=== PATIENT | male | born 1990 | race American Indian/Alaskan Native ===

== ENCOUNTER 2020-09-28 07:12 | Emergency (ER) | payer SELFPAY ==
[2020-09-28] MEDS ORDERED: levETIRAcetam 1000 MG/NS 0.75% 1,000 MG/100 ML BAG IV ONE ×2 (07:44→07:45)
--- NOTE | 2020-09-28 07:48 | Emergency Department Report ---
ED General Adult HPI - General Chief complaint: Seizure Stated complaint: SEIZURE PUI?: No Time Seen by Provider: 09/28/20 07:34 Source: patient, EMS ( EMS documentation not available at time of chart dictation ), RN notes reviewed Mode of arrival: Stretcher Limitations: No Limitations - History of Present Illness Initial comments: The patient was evaluated in the emergency department for symptoms described in the history of present illness. He/she was evaluated in the context of the global COVID-19 pandemic, which necessitated consideration that the patient might be at risk for infection with the virus that causes COVID-19. Institutional protocols and algorithms that pertain to the evaluation of patients at risk for COVID-19 are in a state of rapid change based on information released by regulatory bodies including the CDC and federal and state organizations. These policies and algorithms were followed during the patient's care in the emergency department. Please note that these policies, procedures and recommendations changed on a rapid basis. The patient is a 30-year-old gentleman. He is not known to myself previously. He has a history of seizure. He takes Keppra, 500 mg twice daily. He has moved to this area about a year ago, from [facility], where he was seeing a neurologist, Dr. North. He reports he was diagnosed with seizures approximately 2 years ago, and maintained on Keppra. His last seizure/convulsion was in 2019. The patient has been maintained on Keppra, and has had gradually de-escalating doses, over the past 2 years, and he currently takes 500 mg twice daily, and reports compliance with his Keppra. He presents to the ER via EMS, because of having had convulsion or seizures. He reports his fiance contacted 911. The patient denies headache, neck pain, chest pain, abd ominal pain, shortness of breath, fever, chills, sore throat, loss of vision, loss of taste, loss of smell has mild right-sided throbbing shoulder discomfort, he does not use recreational drugs, and occasionally smokes hookah. He has no additional complaints at this time, he does not want any pain medicine, and he states that he feels like in his usual state of health. 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 Specifically denies headache, neck pain, fever, chills, loss of taste and smell -: Sudden Consistency: now resolved Improves with: none Worsens with: none Associated Symptoms: denies other symptoms - Related Data Previous Rx's Medication Instructions Recorded Last Taken Type levETIRAcetam [Keppra TAB] 1,000 mg PO BID #60 tab 09/28/20 Unknown Rx Allergies Allergy/AdvReac Type Severity Reaction Status Date / Time No Known Allergies Allergy Unverified 09/28/20 08:30 ED Review of Systems ROS: Stated complaint: SEIZURE Other details as noted in HPI Musculoskeletal: arthralgia, other (Right shoulder pain) ED Past Medical Hx - Past Medical History Previous Medical History?: Yes Additional medical history: seizure - Surgical History Past Surgical History?: No - Social History Smoking Status: Light Tobacco Smoker Substance Use Type: None - Medications Home Medications: Home Medications Medication Instructions Recorded Confirmed Last Taken Type levETIRAcetam [Keppra TAB] 1,000 mg PO BID #60 tab 09/28/20 Unknown Rx ED Physical Exam - General Limitations: No Limitations General appearance: alert, in no apparent distress - Head Head exam: Present: atraumatic, normocephalic - Eye Eye exam: Present: normal appearance, PERRL, EOMI, other (Visual acuity intact to finger counting, color perception, reading at a close distance). Absent: nystagmus - ENT ENT exam: Present: normal exam, normal orophraynx, mucous membranes moist, normal external ear exam - Neck Neck exam: Present: normal inspection, full ROM. Absent: tenderness, meningismus - Respiratory Respiratory exam: Present: normal lung sounds bilaterally. Absent: respiratory distress, wheezes, rales, stridor, decreased breath sounds - Cardiovascular Cardiovascular Exam: Present: regular rate, normal rhythm, normal heart sounds. Absent: bradycardia, tachycardia, irregular rhythm, systolic murmur, diastolic murmur, rubs, gallop - GI/Abdominal GI/Abdominal exam: Present: soft, normal bowel sounds. Absent: distended, tenderness, guarding, rebound, rigid, pulsatile mass - Rectal Rectal exam: Present: deferred - Extremities Exam Extremities exam: Present: normal inspection, full ROM, other (2+ pulses noted in the bilateral upper and lower extremities. There is no palpable cord. negative Homans sign. Muscular compartments are soft. The pelvis is stable.). Absent: pedal edema, calf tenderness - Back Exam Back exam: Present: normal inspection, full ROM. Absent: tenderness, CVA tenderness (R), CVA tenderness (L), paraspinal tenderness, vertebral tenderness - Neurological Exam Neurological exam: Present: alert, oriented X3, other (No facial droop. Tongue midline. Extraocular movements intact bilaterally. Facial sensation intact to light touch in V1, V2, V3 distribution bilaterally. 5 and a 5 strength in 4 extremities. Sensation intact to light touch in 4 extremities.). Absent: motor sensory deficit - Psychiatric Psychiatric exam: Present: normal affect, normal mood - Skin Skin exam: Present: warm, dry, intact, normal color. Absent: rash ED Course Vital Signs 09/28/20 09/28/20 09/28/20 07:17 07:32 07:46 Temperature 98.3 F Pulse Rate 95 H 87 93 H Respiratory 16 18 8 L Rate Blood Pressure 106/71 O2 Sat by Pulse 100 99 95 Oximetry O2 Sat by Pulse Oximetry [ Digit-Finger] 09/28/20 09/28/20 09/28/20 08:00 08:16 08:36 Temperature Pulse Rate 96 H 90 86 Respiratory 14 11 L 19 Rate Blood Pressure 116/80 O2 Sat by Pulse 100 100 Oximetry O2 Sat by Pulse Oximetry [ Digit-Finger] 09/28/20 09/28/20 09/28/20 08:46 08:55 09:00 Temperature Pulse Rate 80 Respiratory 12 18 Rate Blood Pressure 112/74 O2 Sat by Pulse 100 100 Oximetry O2 Sat by Pulse 99 Oximetry [ Digit-Finger] - Reevaluation(s) Reevaluation #1: 09/28/20 07:51 Differential diagnosis, including but not limited to: Seizure, subtherapeutic AED level, elevated CK, electrolyte derangement Assessment and plan: 30-year-old gentleman, who is afebrile, with reassuring vital signs, with no headache or neck pain, no meningeal signs, clinically sober, with a GCS of 15, unremarkable musculoskeletal examination, able to add 4+4, subtract 100-7, alert and oriented to name, place, year, able to tell me where he works, what his job entails, and able to tell me his private insurance company ([employer]). Patient reportedly had convulsive events. Suspect breakthrough seizure, likely secondary to subtherapeutic AED level. Patient recreationally consumes hookah, but denies other recreational drug use. He denies headache, neck pain, chest pain, cough, shortness of breath, urinary symptoms and abdominal pain. Physical exam does not indicate signs of blunt trauma. He denies headache. No indication for advanced imaging at this time based of history and physical. Obtain appropriate laboratory studies, EKG, loaded with 2 g Keppra, initiate seizure precautions, and monitor. I discussed this plan of care with the patient, who verbalized understanding. Patient advised to not drive or operate motor vehicles for the next 6 months. Also advised on the need to follow-up with local outpatient neurology, and we will likely increase Keppra dose to 1000 milligrams twice daily, pending close outpatient neurology follow-up. Patient is in agreement with this plan of care at this time. And he declines pain medication at this time. Right shoulder exam is unremarkable, with full active and passive range of motion Reevaluation #2: 09/28/20 08:55 Patient playing on cellular phone. Ambulatory with a steady gait. No acute distress. No further convulsive events noted. Reevaluation #3: 09/28/20 10:18 Final reevaluation. Patient has been here for approximately 3 hours, no convulsive events have been noted, he is playing on his cellular phone, walking with a steady gait, and clinically sober. His objective laboratory evaluation is unremarkable, his EKG is unremarkable, and he remains sober, and exhibits decision-making capacity. Patient informed of findings. He has articulated understanding to appropriate discharge instructions. - Pulse Oximetry Interpretation Digit-Finger Initial Pulse Oximetry Readin O2 Sat by Pulse Oximetry: 99 Actions Taken: none ED Medical Decision Making - Lab Data Result diagrams: 09/28/20 08:02 09/28/20 08:02 Vital Signs 09/28/20 07:17 Temperature 98.3 F Pulse Rate 95 H Respiratory 16 Rate Blood Pressure 106/71 O2 Sat by Pulse 100 Oximetry - EKG Data -: EKG Interpreted by Tn EKG shows normal: sinus rhythm Rate: normal - EKG Data When compared to previous EKG there are: previous EKG unavailable 09/28/20 08:23 Sinus rhythm, 85 bpm. Normal axis, normal intervals, poor R wave progression, not a STEMI. Unremarkable EKG. Not a STEMI. No prior for comparison. Time of interpretation: 8: 20 a.m. Critical care attestation.: If time is entered above; I have spent that time in minutes in the direct care of this critically ill patient, excluding procedure time. ED Disposition Clinical Impression: History of seizure Disposition: DC-01 TO HOME OR SELFCARE Is pt being admited?: No Does the pt Need Aspirin: No Condition: Good Instructions: Seizure, Adult, [id number] Additional Instructions: Do not drive or operate motor vehicles for the next 6 months, or until cleared to do so by a primary care doctor or neurologist. Increase Keppra to 1000 mg twice daily. Avoid consumption of alcohol, hookah, tobacco, and all smoke products. Follow-up within the next 5 to 7 days with an outpatient neurologist. Please return to the emergency room right away with new seizure, new pain, confusion, fever, chills, lethargy, irritability, weakness, change in mental sta tus, or any new, worsened or different symptoms not present on the initial emergency room evaluation. For the patient's convenience, numerous local neurology specialists are listed for his follow-up. Patient may also contact his private insurance company, to find out which neurology specialist is close by/in network/available. Prescriptions: levETIRAcetam [Keppra TAB] 1,000 mg PO BID #60 tab Referrals: NOEMI MO MD [Staff Physician] - 3-5 Days WICHO HAN MD [Referring] - 3-5 Days LIZETH NAILS MD [Staff Physician] - 3-5 Days [facility] [Provider Group] - 3-5 Days Forms: Work/School Release Form(ED)
[2020-09-28 08:38] LABS: Hematocrit 50.5 % (35.5-45.6); Hemoglobin 17.4 gm/dl (11.8-15.2)
[2020-09-28 09:34] LABS: BUN/Creatinine Ratio 8; Blood Urea Nitrogen 9 mg/dL (9-20); Calcium 9.2 mg/dL (8.4-10.2); Hemolysis Index 17
[2020-09-28 11:37] VITALS: BP 106/73
== END 2020-09-28 11:31 | disposition home or self-care (01) ==
LOC: ED 07:12
DX: G40.909 Epilepsy, unspecified, not intractable, without status epilepticus (principal); Z79.899 Other long term (current) drug therapy
CPT/HCPCS: 36415; 80048; 82550; 83735; 85014; 85018; 85049; 93005; 96365; 96376; 99284; J1953; 80320; G0480

== ENCOUNTER 2021-01-30 05:01 | Emergency (ER) | payer SELFPAY ==
[2021-01-30] MEDS ORDERED: levETIRAcetam 1000 MG/NS 0.75% 1,000 MG/100 ML BAG IV ONE (05:25)
--- NOTE | 2021-01-30 05:33 | Emergency Department Report ---
Blank Doc - Documentation Documentation: Patient is a 30 years old male with history of seizure. Patient stated that he is taking Keppra 1000 mg twice a day. Patient brought to the emergency room via EMS from home for evaluation of 2 episode of seizure this morning. Upon arrival to the ER patient is alert, oriented x3 in no acute distress. Vital signs stable. I ordered labs. Patient also received Keppra 1 g IV.
[2021-01-30 06:03] LABS: Basophils % (Auto) 0.4 % (0.0-1.8); Eosinophils # (Auto) 0.1 K/mm3 (0.0-0.4); Eosinophils % (Auto) 1.6 % (0.0-4.3); Lymphocytes # (Auto) 0.8 K/mm3 (1.2-5.4); Mean Corpuscular HGB Conc 36 % (32-34); Mean Corpuscular Volume 94 fl (84-94); Monocytes # (Auto) 0.6 K/mm3 (0.0-0.8); Monocytes % (Auto) 7.6 % (0.0-7.3); Platelet Count 154 K/mm3 (140-440); Red Blood Count 4.41 M/mm3 (3.65-5.03)
[2021-01-30 06:10] LABS: Hematocrit 41.3 % (35.5-45.6)
[2021-01-30 06:23] LABS: Alanine Aminotransferase 15 units/L (7-56); Albumin 4.3 g/dL (3.9-5); BUN/Creatinine Ratio 11; Blood Urea Nitrogen 12 mg/dL (9-20); Calcium 8.8 mg/dL (8.4-10.2); Hemolysis Index 14
[2021-01-30 06:26] LABS: Bilirubin,Direct < 0.2 mg/dL (0-0.2)
--- NOTE | 2021-01-30 06:31 | Emergency Department Report ---
ED Seizure HPI - General Chief Complaint: Seizure Stated Complaint: SEIZURE Time Seen by Provider: 01/30/21 06:14 Source: patient, EMS ( EMS documentation not available at time of chart dictation ), RN notes reviewed, old records reviewed Mode of arrival: Stretcher Limitations: No Limitations - History of Present Illness Initial Comments: The patient is a pleasant 30-year-old gentleman. I have evaluated this patient in the past. The patient reports a history of seizure. He currently takes Keppra, 1 g twice daily. He is a former marijuana smoker, but has been abstinent for about a year. He moved to this area in September. He currently does not have a local primary care doctor or a neurologist. He presents to the ER today with a complaint of seizure. He was in bed, with his significant other, and had a few convulsive events. He does not know how long the convulsive events lasted for. His significant other is not sure how long the convulsive events lasted for. There is no head trauma. The patient complains of mild right-sided aching shoulder pain, but declines pain medication. Denies headache, neck pain, chest pain, abdominal pain, shortness of breath, cough, urinary symptoms. He denies loss of taste and smell. He has not recei james his Covid vaccination. He is occasionally exposed to secondhand marijuana. He feels like he is at his baseline. He is adamant that he is compliant with his Keppra therapy. He reports that he has [employer] insurance, but he thinks it is based out of [place], and he believes that it has presented some difficulty in him requiring outpatient follow-up. However, at this point time, he feels like he is back to his baseline. MD Complaint: seizure -: Sudden Description of Episode: loss of consciousness, tonic-clonic movement -: second(s) Witnessed:: Yes Trauma: No Seizure History: known seizure disorder, compliant with medication Place: home Possible Precipitating Event: none Associated Symptoms: denies other symptoms Treatments Prior to Arrival: none (None that patient can recall) - Related Data Previous Rx's Medication Instructions Recorded Last Taken Type levETIRAcetam [Keppra TAB] 1,000 mg PO BID #60 tab 01/30/21 Unknown Rx Allergies Allergy/AdvReac Type Severity Reaction Status Date / Time No Known Allergies Allergy Unverified 09/28/20 08:30 ED Review of Systems ROS: Stated complaint: SEIZURE Other details as noted in HPI Comment: All other systems reviewed and negative Musculoskeletal: myalgia (Right-sided shoulder pain) ED Past Medical Hx - Past Medical History Additional medical history: seizure - Social History Smoking Status: Never Smoker - Medications Home Medications: Home Medications Medication Instructions Recorded Confirmed Last Taken Type levETIRAcetam [Keppra TAB] 1,000 mg PO BID #60 tab 01/30/21 Unknown Rx ED Physical Exam - General Limitations: No Limitations General appearance: alert, in no apparent distress - Head Head exam: Present: atraumatic, normocephalic - Eye Eye exam: Present: normal appearance, PERRL, EOMI, nystagmus - ENT ENT exam: Present: normal exam, normal orophraynx, mucous membranes moist, normal external ear exam, other (Superficial right-sided distal tongue injury noted.) - Neck Neck exam: Present: normal inspection, full ROM. Absent: tenderness, menin gismus - Respiratory Respiratory exam: Present: normal lung sounds bilaterally. Absent: respiratory distress, wheezes, rales, rhonchi, stridor, decreased breath sounds - Cardiovascular Cardiovascular Exam: Present: regular rate, normal rhythm, normal heart sounds. Absent: bradycardia, tachycardia, irregular rhythm, systolic murmur, diastolic murmur, rubs, gallop - GI/Abdominal GI/Abdominal exam: Present: soft. Absent: distended, tenderness, guarding, rebound, rigid, pulsatile mass - Rectal Rectal exam: Present: deferred - Extremities Exam Extremities exam: Present: normal inspection, full ROM, other (2+ pulses noted in the bilateral upper and lower extremities. There is no palpable cord. ne gative Homans sign. Muscular compartments are soft. The pelvis is stable.). Absent: pedal edema, calf tenderness - Back Exam Back exam: Present: normal inspection, full ROM. Absent: tenderness, CVA tenderness (R), CVA tenderness (L), paraspinal tenderness, vertebral tenderness - Neurological Exam Neurological exam: Present: alert, oriented X3, other (No facial droop. Tongue midline. Extraocular movements intact bilaterally. Facial sensation intact to light touch in V1, V2, V3 distribution bilaterally. 5 and a 5 strength in 4 extremities. Sensation intact to light touch in 4 extremities.). Absent: motor sensory deficit - Psychiatric Psychiatric exam: Present: normal affect, normal mood - Skin Skin exam: Present: warm, dry, intact, normal color. Absent: rash ED Course Vital Signs 01/30/21 01/30/21 05:15 07:05 Temperature 98.9 F Pulse Rate 94 H Respiratory 18 Rate Blood Pressure 104/61 [Left] O2 Sat by Pulse 99 Oximetry O2 Sat by Pulse 99 Oximetry [ Digit-Finger] - Reevaluation(s) Reevaluation #1: 01/30/21 07:00 Differential diagnosis, including but not limited to: Seizure, electrolyte derangement, pseudoseizure Assessment and plan: 30-year-old gentleman, with a history of seizures, who is clinically sober at this time, with a GCS of 15, alert and oriented x3, who exhibits decision-making capacity, and who is in no acute distress at this time. Patient noted to be texting on his cellular phone, has full range of motion in his shoulders, with no significant tenderness, exam is not suggestive of dislocation or subluxation at this time. Patient asked about obtaining a Keppra level, and he was informed that we are not able to obtain rapid acquisition of Keppra level. This laboratory studies unfortunately a send out lab and it will take a few days to result. I have recounseled this patient to follow-up with an outpatient primary care doctor and neurologist. We also discussed that he may need to contact his private insurance company, either by phone, application, or website, and ascertain which primary care doctors and or neurologist may be in his network. I also counseled him that many of our local providers should be able to accommodate him with an outpatient appointment, although he may have to pay [id number] if not in network. From a medical emergency standpoint, the patient is suitable for discharge at this time with outpatient follow-up, he is again counseled to not drive or operate motor vehicles for the next 6 months, he denies urinary symptoms, he is young, and he is clinically sober at this time. 01/30/21 07:20 Final reassessment. Patient sitting comfortably on stretcher. Vital signs remained stable. Have explained plan of care to the patient. He has articulated understanding. He states he is reliable to follow-up. All questions answered. - Pulse Oximetry Interpretation Digit-Finger Initial Pulse Oximetry Readin O2 Sat by Pulse Oximetry: 99 Actions Taken: none ED Medical Decision Making - Lab Data Result diagrams: 01/30/21 05:52 01/30/21 05:52 Vital Signs 01/30/21 05:15 Temperature 98.9 F Pulse Rate 94 H Respiratory 18 Rate Blood Pressure 104/61 [Left] O2 Sat by Pulse 99 Oximetry Lab Results 01/30/21 01/30/21 01/30/21 Range/Units 05:52 05:52 05:52 WBC 8.4 (4.5-11.0) K/mm3 RBC 4.41 (3.65-5.03) M/mm3 Hgb 15.0 (11.8-15.2) gm/dl Hct 41.3 (35.5-45.6) % MCV 94 (84-94) fl MCH 34 H (28-32) pg MCHC 36 H (32-34) % RDW 12.0 L (13.2-15.2) % Plt Count 154 (140-440) K/mm3 Lymph % (Auto) 10.0 L (13.4-35.0) % [place] % (Auto) 7.6 H (0.0-7.3) % Eos % (Auto) 1.6 (0.0-4.3) % Baso % (Auto) 0.4 (0.0-1.8) % Lymph # (Auto) 0.8 L (1.2-5.4) K/mm3 [place] # (Auto) 0.6 (0.0-0.8) K/mm3 Eos # (Auto) 0.1 (0.0-0.4) K/mm3 Baso # (Auto) 0.0 (0.0-0.1) K/mm3 Seg Neutrophils % 80.4 H (40.0-70.0) % Seg Neutrophils # 6.8 (1.8-7.7) K/mm3 Sodium 138 (137-145) mmol/L Potassium 4.2 (3.6-5.0) mmol/L Chloride 102.6 (98-107) mmol/L Carbon Dioxide 25 (22-30) mmol/L Anion Gap 15 mmol/L BUN 12 (9-20) mg/dL Creatinine 1.1 (0.8-1.3) mg/dL Estimated GFR > 60 ml/min BUN/Creatinine Ratio 11 % Glucose 98 (75-100) mg/dL Calcium 8.8 (8.4-10.2) mg/dL Magnesium 2.30 (1.7-2.3) mg/dL Total Bilirubin 0.70 (0.1-1.2) mg/dL Direct Bilirubin < 0.2 (0-0.2) mg/dL Indirect Bilirubin 0.5 mg/dL AST 19 (5-40) units/L ALT 15 (7-56) units/L Alkaline Phosphatase 45 (35-129) units/L Total Creatine Kinase 365 H (55-170) units/L Total Protein 6.3 (6.3-8.2) g/dL Albumin 4.3 (3.9-5) g/dL Albumin/Globulin Ratio 2.2 % - EKG Data -: EKG Interpreted by [place] EKG shows normal: sinus rhythm Rate: normal - EKG Data When compared to previous EKG there are: no significant change Interpretation: unchanged when compared t 01/30/21 06:59 EKG interpreted today at 06: 15 a.m., and is unchanged from prior EKG from 09/28/2020 Sinus rhythm, with a normal P wave axis. Normal axis, normal intervals, high left ventricular voltage. This EKG is not a STEMI. Critical care attestation.: If time is entered above; I have spent that time in minutes in the direct care o f this critically ill patient, excluding procedure time. ED Disposition Clinical Impression: History of seizure Disposition: DC-01 TO HOME OR SELFCARE Is pt being admited?: No Does the pt Need Aspirin: No Condition: Good Instructions: Seizure, Adult Additional Instructions: Please continue current Keppra therapy. Please avoid consumption of alcohol, tobacco, and first and/or secondhand exposure to marijuana/cannabis. Recommend that patient not drive or operate motor vehicles for the next 6 months. Recommend that patient follow-up with a primary care doctor or neurologist within the next [address] Mo, Dr[address] Han are local neurology specialist. Dr. Vannessa Ayers is a local primary care doctor. The patient may need to contact his private insurance company, and find out which primary care doctor and/or neurologist are in network. Alternatively, he may contact the aforementioned physicians to determine if they are in his network. It is very important that the patient follow-up with a primary care doctor and/or neurologist for outpatient health maintenance, as well as outpatient m aintenance of reported seizure disorder. Please return to the emergency room right away with new pain, worsened pain, migration of pain, ejected vomiting, change in mental status, confusion, inabili ty to tolerate liquid feeds, new, worsened or different symptoms not present on the initial emergency room evaluation, recurrent seizures and/or convulsive events. Prescriptions: levETIRAcetam [Keppra TAB] 1,000 mg PO BID #60 tab Referrals: NOEMI MO MD [Staff Physician] - 3-5 Days WICHO HAN MD [Referring] - 3-5 Days JONATHAN AYERS MD [Staff Physician] - 3-5 Days Forms: Work/School Release Form(ED)
[2021-01-30 08:01] VITALS: BP 106/67
--- NOTE | 2021-01-31 17:52 | Electrocardiograph Report ---
[facility] Test Date: 2021-01-30 Test Time: 06:15:42 Pat Name: BRAULIO ALEJANDRO Department: Room: Gender: M Bowl Topper: SONI : 1990 Requested By: LASHELL ALEGRIA Order Number: [id number] Reading MD: Letitai Granados Measurements Intervals [place] Rate: 77 P: 66 OK: 181 QRS: 67 QRSD: 74 T: 41 QT: 348 QTc: 394 Interpretive Statements Sinus rhythm No previous ECG available for comparison Electronically Signed On 01-31-2021 17:52:34 EDT by Letitia Granados
== END 2021-01-30 08:04 | disposition home or self-care (01) ==
LOC: ED 05:01
DX: R56.9 Unspecified convulsions (principal); Z79.899 Other long term (current) drug therapy
CPT/HCPCS: 36415; 80048; 80076; 82550; 83735; 85025; 93005; 96365; 99284; J1953